=== PATIENT | female | born 1985 | race Caucasian/White ===

== ENCOUNTER 2019-11-21 23:05 | Emergency (ER) | payer OTHER ==
[~2019-11-21] VITALS: Ht 149.9 cm; Wt 45.5 kg
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
[2019-11-22] MEDS ORDERED: ORPH100T PO (00:23)
[2019-11-22] MEDS ORDERED: DICL50TA4 PO (00:23)
[2019-11-22] MEDS ORDERED: ACET-704 PO (00:23)
[2019-11-22 00:28] VITALS: BP 87/50
== END 2019-11-22 00:35 | disposition home or self-care (01) ==
LOC: ER 23:05
DX: S13.9XXA Sprain of joints and ligaments of unspecified parts of neck, initial encounter (principal); S23.3XXA Sprain of ligaments of thoracic spine, initial encounter; V49.49XA Driver injured in collision with other motor vehicles in traffic accident, initial encounter; Y92.488 Other paved roadways as the place of occurrence of the external cause; Y93.89 Activity, other specified; Y99.8 Other external cause status
CPT/HCPCS: 72125; 72128; 99285-25

== ENCOUNTER 2020-06-30 01:19 | Emergency (ER) | payer MEDICAID, OTHER ==
[~2020-06-30] VITALS: Ht 149.9 cm; Wt 41.8 kg
[~2020-06-30 01:19] MED LIST: ACET-704 PO; DICL50TA4 PO; ORPH100T PO
--- NOTE | 2020-06-30 02:14 | ED.ADGEN ---
Past Medical History Past Medical History: Other Additional Past Medical Histor: scoliosis Past Surgical History: Other Additional Past Surgical Histo: multiple back surgeries Smoking Status: Current Every Day Smoker Alcohol Use: None General Adult EDM: Chief Complaint: LOWER EXT PAIN HPI: HPI: Patient is a 35 year old female coming in for worsening right knee pain. States yesterday afternoon from a nap and noticed some pain the swelling to right knee. States pain woke up about an hour prior to arrival it was intolerable. Took one of her oxycodone which she takes scheduled for chronic pain and ibuprofen. Any injury or twisting. 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 Review of Systems: Review of Systems: All other systems within normal limits except for as noted in the HPI Current Medications: Current Medications Medications (Trade) Dose Ordered Sig/Charleen Start Time Stop Time Status Last Admin Dose Admin Lidocaine/ Epinephrine (LIDOCAINE 2%-EPI 1:100,000 multi-dose) 20 ml 1X ONCE 06/30/20 03:00 06/30/20 03:01 DC 06/30/20 04:07 20 ML Lorazepam (Ativan) 1 mg 1X ONCE 06/30/20 03:30 06/30/20 03:31 DC 06/30/20 03:27 1 MG Prednisone (Prednisone) 60 mg 1X ONCE 06/30/20 05:30 06/30/20 05:31 06/30/20 05:17 60 MG Allergies: Allergies: Allergies Coded Allergies Type Severity Reaction Last Updated Verified Penicillins Allergy Intermediate 06/30/20 Yes Physical Exam: PE: Constitutional: Well developed, well nourished, anxious and tearful. [] HENT: Normocephalic, atraumatic, bilateral external ears normal, nose normal. [] Eyes: PERRLA, conjunctiva normal, no discharge. [] Neck: No rigidity, supple, no stridor. [] Cardiovascular: Regular rate and rhythm, brisk cap refill [] Lungs & Thorax: Non labored symmetric respirations, no tachypnea or respiratory distress [] Abdomen: Soft, nondistended. Skin: Warm, dry, no erythema, no rash. [] Back: Unremarkable Extremities: No deformities, range of motion grossly intact, no lower extremity edema. Mild swelling of right knee, tenderness on the medial aspect of knee, no laxity, no erythema or warmth on the knee. Able to ambulate [] Neurologic: Alert and oriented X 3, no focal deficits noted. [] Psychologic: Affect normal, judgement normal, mood normal. [] Current Patient Data: Labs: Laboratory Tests Test 06/30/20 04:00 Body Fluid Source Synovial Body Fluid Color Colorless Body Fluid Clarity Clear Body Fluid Nucleated Cells /cmm (Not Established) Body Fluid Mononuclear WBCs (%) 45 % Body Fluid Polymorphonuclear Cells 55 % Body Fluid Total RBCs Counted /cmm (Not Established) Vital Signs: Vital Signs Date Time Temp Pulse Resp B/P (MAP) Pulse Ox O2 Delivery O2 Flow Rate FiO2 06/30/20 05:08 68 12 89/53 (65) 96 Room Air 06/30/20 01:20 98.0 98.0 EKG: EKG: [] Heart Score: Risk Factors: Risk Factors: DM, Current or recent (<one month) smoker, HTN, HLP, family history of CAD, obesity. Risk Scores: Score 0 - 3: 2.5% MACE over next 6 weeks - Discharge Home Score 4 - 6: 20.3% MACE over next 6 weeks - Admit for Clinical Observation Score 7 - 10: 72.7% MACE over next 6 weeks - Early Invasive Strategies Radiology/Procedures: Radiology/Procedures: Indication: [INDICATION:] Consent: Consent given by patient. Procedure: The knee was well was positioned appropriately and the landmarks were identified. Local anesthesia was 1% lidocaine with epinephrine. The area was then prepped and draped in the usual sterile fashion. A needle was then introduced into the joint space half a cc of clear fluid was aspirated. A sterile dressing was then applied to the site. The patient tolerated the procedure well. Complications: none. [] PROCEDURE: EXT NON VASC RIGHT Right lower extremity soft tissue ultrasound HISTORY: Right leg pain cannot bend the knee, Franco's cyst. FINDINGS: No Franco's cyst evident sonographically at the posterior knee popliteal fossa. At the anterior knee there is a mild joint effusion noted. IMPRESSION: No Franco's cyst evident. Mild joint effusion of the knee. Right knee x-rays 3 views HISTORY: Right knee pain and swelling. FINDINGS: No fracture. No dislocation. No arthrosis. Meniscal chondrocalcinosis. There may be mild anterior knee soft tissue edema and swelling. IMPRESSION: No acute osseous injury. Meniscal chondrocalcinosis. Anterior knee soft tissue swelling. Course & Med Decision Making: Course & Med Decision Making History physical exam and imaging consistent with pseudogout. Not enough fluid was able to be aspirated to do a crystal count. The Gram stain shows no organisms and few white blood cells. [] Dragon Disclaimer: Dragon Disclaimer: This electronic medical record was generated, in whole or in part, using a voice recognition dictation system. Departure Departure Impression: Primary Impression: Synovial swelling of knee joint Disposition: 01 DC HOME SELF CARE/HOMELESS Condition: STABLE Referrals: [facility] Patient Instructions: Knee Arthrocentesis, Pseudogout Scripts Indomethacin (INDOMETHACIN) 50 Mg Capsule 1 CAP PO TID for arthritis for 10 Days, #30 CAP 0 Refills with food Prov: TU KAYE MD 06/30/20 Methylprednisolone (MEDROL) 4 Mg Tab.ds.pk 1 PKG PO UD for steroid, #1 PKG Prov: TU KAYE MD 06/30/20 TU KAYE MD Jun 30, 2020 02:14
[2020-06-30] MEDS ORDERED: LIDOCAINE 2%/EPI 1:100,000 20 ML VIAL. INJ ONE (03:00)
--- NOTE | 2020-06-30 03:29 | RAD ---
Right knee x-rays 3 views HISTORY: Right knee pain and swelling. FINDINGS: No fracture. No dislocation. No arthrosis. Meniscal chondrocalcinosis. There may be mild an terior knee soft tissue edema and swelling. IMPRESSION: No acute osseous injury. Meniscal chondrocalcinosis. Anterior knee soft tissue swelling. Electronically signed by: Hao Dennis MD (06/30/2020 3:22 AM) [facility]
--- NOTE | 2020-06-30 05:00 | RAD ---
Right lower extremity soft tissue ultrasound HISTORY: Right leg pain cannot bend the knee, Franco's cyst. FINDINGS: No Franco's cyst evident sonographically at the posterior knee popliteal fossa. At the anter ior knee there is a mild joint effusion noted. IMPRESSION: No Franco's cyst evident. Mild joint effusion of the knee. Electronically signed by: Hao Dennis MD (06/30/2020 4:57 AM) [facility]
[2020-06-30] MEDS ORDERED: METH4TAB2 PO (05:03)
[2020-06-30] MEDS ORDERED: INDO50CA15 PO (05:03)
[2020-06-30] MEDS: predniSONE 20 MG TABLET PO ONE ×2 (05:11→05:17)
[2020-06-30 05:15] VITALS: BP 91/52
[2020-06-30 05:16] LABS: BF CLARITY CLEAR; BF COLOR COLORLESS; BF MON % 45 %; BF PMN % 55 %; BF SOURCE SYNOVIAL
== END 2020-06-30 05:30 | disposition home or self-care (01) ==
LOC: ER 01:19
DX: M25.561 Pain in right knee (principal); R60.0 Localized edema; F17.200 Nicotine dependence, unspecified, uncomplicated; Z98.890 Other specified postprocedural states; Z88.0 Allergy status to penicillin
CPT/HCPCS: 20610; 73562; 76881; 89050; 99285; J3490; J7512

== ENCOUNTER 2020-08-18 21:46 | Emergency (ER) | payer OTHER, MEDICAID ==
[~2020-08-18] VITALS: Ht 149.9 cm; Wt 43.6 kg
[~2020-08-18 21:46] MED LIST changes: +INDO50CA15 PO; +METH4TAB2 PO
[2020-08-18 21:56] VITALS: BP 92/33
--- NOTE | 2020-08-18 23:51 | RAD ---
INDICATION: Reason: fall head and neck pain / Spl. Instructions: / History: COMPARISON: October 2019 CT cervical TECHNIQUE: Axial CT images obtained through the head and cervical spine without intravenous contrast. Coronal a nd sagittal reformats processed of cervical spine. One or more of the following individualized dose reduction techniques were utilized for this examinat ion: 1. Automated exposure control; 2. Adjustment of the mA and/or kV according to patient size; 3 . Use of iterative reconstruction technique. FINDINGS: Head: No intracranial hemorrhage. No midline shift. Basal cisterns patents. Ventricles and sulci are within normal limits. No acute osseous abnormality. Orbits and paranasal sinuses unremarkable. Cervical: Postoperative changes status post anterior spinal fusion at C6-7 again seen. Degenerative changes of the cervical spine again seen. No definite acute fracture or dislocation. IMPRESSION: * No acute intracranial hemorrhage. * Postoperative changes status post anterior spinal fusion at C6-7 again seen as well as scoliosis r ods at partially visualized thoracic spine. Degenerative changes are also seen throughout the cervica l spine without acute fracture or dislocation. Electronically signed by: Alonso Chiu MD (08/18/2020 11:48 PM) [id number]
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
== END 2020-08-19 00:50 | disposition home or self-care (01) ==
LOC: ER 21:46
DX: S01.01XA Laceration without foreign body of scalp, initial encounter (principal); S13.4XXA Sprain of ligaments of cervical spine, initial encounter; M41.9 Scoliosis, unspecified; F17.200 Nicotine dependence, unspecified, uncomplicated; Z98.890 Other specified postprocedural states; Z88.0 Allergy status to penicillin; W18.39XA Other fall on same level, initial encounter; Y93.89 Activity, other specified; Y92.89 Other specified places as the place of occurrence of the external cause; Y99.8 Other external cause status
CPT/HCPCS: 70450; 72125; 81025; 99285

== ENCOUNTER 2021-04-02 06:08 | Emergency (ER) | payer MEDICAID, OTHER ==
[~2021-04-02] VITALS: Ht 149.9 cm; Wt 47.7 kg
[2021-04-02 06:40] VITALS: BP 91/59
--- NOTE | 2021-04-02 06:42 | PHYS DOC ---
Past Medical History Past Medical History: Other Additional Past Medical Histor: scoliosis Past Surgical History: Other Additional Past Surgical Histo: multiple back surgeries Smoking Status: Current Every Day Smoker Alcohol Use: None General Adult EDM: Chief Complaint: SHOULDER INJURY HPI: HPI: 36-year-old female with history of chronic pain, previous cervical spine injury and current pain management course presents to the emergency department complaining of chronic nonacute pain in both shoulders and both knees which she states is worse in the morning as not associate with any injury or new trauma. She reports no new symptoms today, stated that it was hard to get out of bed this morning so she came to the ER for pain relief. She gets oxycodone from a pain management physician that she saw on Tuesday, states that these are not helping her pain. She is requesting pain relief today. The patient denies nausea, vomiting, fever, chills, chest pain, shortness of breath, abdominal pain, urinary symptoms, cough, recent trauma, or any other complaints. Review of Systems: Review of Systems: Review of systems is otherwise negative except for what was mentioned in the HPI Heart Score: C/O Chest Pain: No Family History: Family History: Noncontributory Allergies: Allergies: Allergies Coded Allergies Type Severity Reaction Last Updated Verified Penicillins Allergy Intermediate 06/30/20 Yes Physical Exam: PE: General: Crying, mild distress. HEENT: Normocephalic, Normal hearing. Visual acuity grossly intact. Neck: Supple, Full range of motion without tenderness. Respiratory: Airway intact, normal phonation, vocalizing. No signs of accessory muscle use or respiratory distress. Cardiovascular: Normal rate, Extremities appear well perfused. 2+ radial pulse. Musculoskeletal: Normal range of motion. No deformity. Ambulatory. No sign of shoulder or knee injury, full rom in passive and active motion, no tenderness. Integumentary: No pallor, No jaundice. Neurologic: Alert, Oriented. Moves all extremities independently. Psychiatric: Cooperative, anxious. Current Patient Data: Vital Signs: Vital Signs Date Time Temp Pulse Resp B/P (MAP) Pulse Ox O2 Delivery O2 Flow Rate FiO2 04/02/21 06:40 98.6 94 13 91/59 (70) 95 Room Air 98.6 Course & Med Decision Making: Course & Med Decision Making Patient was counseled on possible rheumatological disorders versus chronic musculoskeletal issues such as arthritis causing her pain. She was advised to follow-up with her primary care, pain management physicians, and to follow-up with a mobile home servicer eventually to get a further work-up performed. There is no indication of an acute injury objectively today and no history of trauma that would suggest imaging would be beneficial in this case. The patient was given an NSAID for pain and advised to follow-up for further analgesics Departure Departure Impression: Primary Impression: Chronic pain Disposition: HOME / SELF CARE / HOMELESS Condition: STABLE Referrals: EMERY RAMIREZ (PCP) Patient Instructions: Arthritis, Nonspecific, [id number] Additional Instructions: You were seen in the emergency department and your health condition was deemed not to require admission to the hospital. It is important to realize that we can only evaluate you during the time that you are in her department. Occasionally health conditions can worsen upon leaving the emergency department. If this were to happen, please return to and allow us the opportunity to reevaluate you. It is a pleasure to take care of your health needs. Return to the ER if your symptoms worsen, do not improve, or if you develop additional symptoms that are concerning to you As we discussed, follow-up with your primary care physician for possible referral to rheumatology or further workup for msk pain. You will need to follow up with your pain management physician for further narcotics. MARIIA JEAN DO Apr 02, 2021 06:42
[2021-04-02] MEDS ORDERED: KETOROLAC 15 MG/ML VIAL. IM ONE (06:45)
[2021-04-02] MEDS ORDERED: MORPHINE SULFATE 10 MG/ML VIAL. IM ONE (07:00)
== END 2021-04-02 06:54 | disposition home or self-care (01) ==
LOC: ER 06:08
DX: G89.29 Other chronic pain (principal); M25.561 Pain in right knee; M25.562 Pain in left knee; F17.200 Nicotine dependence, unspecified, uncomplicated; Z88.0 Allergy status to penicillin
CPT/HCPCS: 96372; 99283; J1885

== ENCOUNTER 2021-05-03 18:27 | Observation (INO) | payer MEDICAID, OTHER ==
[~2021-05-03] VITALS: Ht 149.9 cm; Wt 30.0 kg
[2021-05-03] MEDS ORDERED: IV NORMAL SALINE 1000ML BAG 1,000 ML IV ONE (20:30)
[2021-05-03 20:38] LABS: BILIRUBIN,URINE NEGATIVE (NEG); CLARITY,URINE CLEAR; COLOR,URINE YELLOW; NITRITE,URINE POSITIVE (NEG); PH,URINE 5.5 (<5.0-8.0); PROTEIN,URINE 30 mg/dL (NEG-TRACE); UROBILINOGEN,URINE 0.2 mg/dL (0.2 mg/dL)
--- NOTE | 2021-05-03 20:39 | PHYS DOC ---
Past Medical History Past Medical History: Other Additional Past Medical Histor: scoliosis Past Surgical History: Other Additional Past Surgical Histo: multiple back surgeries Smoking Status: Current Every Day Smoker Alcohol Use: None General Adult EDM: Chief Complaint: BACK PAIN - NO INJURY HPI: HPI: Patient is a 36 year old female who presents the ED today complaining of 7 out of 10 bilateral flank pain described as sharp and constant, symptoms began 2 days ago. Patient denies any nausea, vomiting. Reports history of kidney stones. Denies any urgency frequency or dysuria. She is also complaining of generalized weakness for 2 days. She states 2 days ago she fell on her knees. Denies hitting her head on the ground but states she has C7, C6 previous fractures and is afraid this fall could have refractured them. Patient is lethargic, she states she is on clonazepam for seizures. Review of Systems: Review of Systems: Constitutional: Reports generalized weakness. Denies fever or chills. [] Eyes: Denies change in visual acuity. [] HENT: Denies nasal congestion or sore throat. [] Respiratory: Denies cough or shortness of breath. [] Cardiovascular: Denies chest pain or edema. [] GI: Denies abdominal pain, nausea, vomiting, bloody stools or diarrhea. [] : Reports bilateral flank pain. Denies dysuria. [] Musculoskeletal: Denies back pain or joint pain. [] Integument: Denies rash. [] Neurologic: Denies headache, focal weakness or sensory changes. [] ] Psychiatric: Denies depression or anxiety. [] Heart Score: C/O Chest Pain: N/A Risk Factors: Risk Factors: DM, Current or recent (<one month) smoker, HTN, HLP, family history of CAD, obesity. Risk Scores: Score 0 - 3: 2.5% MACE over next 6 weeks - Discharge Home Score 4 - 6: 20.3% MACE over next 6 weeks - Admit for Clinical Observation Score 7 - 10: 72.7% MACE over next 6 weeks - Early Invasive Strategies Current Medications: Current Medications Medications (Trade) Dose Ordered Sig/Charleen Start Time Stop Time Status Last Admin Dose Admin Sodium Chloride 1,000 ml @ 1,000 mls/hr 1X ONCE 05/03/21 20:30 05/03/21 21:29 Allergies: Allergies: Allergies Coded Allergies Type Severity Reaction Last Updated Verified Penicillins Allergy Intermediate 06/30/20 Yes gabapentin Allergy Intermediate 04/02/21 Yes morphine Allergy Intermediate 04/02/21 Yes Physical Exam: PE: Constitutional: Thin appearing patient, no acute distress, non-toxic appearance. [] HENT: Normocephalic, atraumatic, bilateral external ears normal, oropharynx moist, no oral exudates, nose normal. [] Eyes: PERRLA, EOMI, conjunctiva normal, no discharge. [] Neck: Normal range of motion, no tenderness, supple, no stridor. [] Cardiovascular:Heart rate regular rhythm, no murmur [] Lungs & Thorax: Bilateral breath sounds clear to auscultation [] Abdomen: Bowel sounds normal, soft, no tenderness, no masses, no pulsatile masses. [] Skin: Warm, dry, no erythema, no rash. [] Back: No tenderness, no CVA tenderness. [] Extremities: No tenderness, no cyanosis, no clubbing, ROM intact, no edema. [] Neurologic: Alert and oriented X 3, normal motor function, normal sensory function, no focal deficits noted. Cranial nerves II through XII intact Psychologic: Flat affect, lethargic Current Patient Data: Vital Signs: Vital Signs Date Time Temp Pulse Resp B/P (MAP) Pulse Ox O2 Delivery O2 Flow Rate FiO2 05/03/21 19:30 97.4 91 17 102/54 (70) 96 Room Air 97.4 EKG: EK interpreted by Dr. Levine sinus rhythm heart rate 83 no STEMI [] Radiology/Procedures: Radiology/Procedures: []PROCEDURE: CT HEAD AND CERVICAL SPINE WO Examination: CT head and cervical spine without contrast CT HEAD INDICATION: Reason: weakness fall / Spl. Instructions: / History: COMPARISON: None Available. Exposure: One or more of the following individualized dose reduction techniques were utilized for this examination: 1. Automated exposure control 2. Adjustment of the mA and/or kV according to patient size 3. Use of iterative reconstruction technique TECHNIQUE: 5 mm contiguous axial images were obtained from the skull base to the vertex in both bone and soft tissue algorithm. FINDINGS: No abnormal attenuation within the brain parenchyma. No evidence of acute intracranial hemorrhage. No extra-axial fluid collections. No mass effect or midline shift. Ventricular size is appropriate. Basal cis terns are patent. No fractures identified.Hurst-white differentiation is preserved.Globes and orbits are within normal limits. Paranasal sinuses and mastoid air cells are clear. CT CERVICAL SPINE INDICATION: Reason: weakness fall / Spl. Instructions: / History: COMPARISON: None Available. Technique: 2.5 mm contiguous axial images were obtained from the skull base through the cervicothoracic junction in both bone and soft tissue algorithm. Additional sagittal and coronal reconstructions were also performed. FINDINGS: Vertebral body height are maintained. Cervical lordosis is preserved. The lateral masses of C1 are aligned upon C2. No fractures identified. The bony canal is patent throughout. Anterior cervical fusion hardware identified at C6-C7 vertebral level with intervertebral disc spacer. There is reversal of normal cervical lordosis. Moderate intervertebral calculus identified in the cervical spine C4-C5, C5-C6 vertebral level. The paraspinous soft tissues are unremarkable. Visualized intracranial contents are unremarkable. Lung apices are clear. IMPRESSION: 1. No acute intracranial findings. 2. No acute fracture cervical spine. 3. Anterior cervical fusion hardware identified at C6-C7 vertebral level with intervertebral disc spacer. Electronically signed by: Pete Wiseman MD (05/03/2021 9:47 PM) [id number] DICTATED and SIGNED BY: PETE WISEMAN MD DATE: 05/03/[id number] 0 PROCEDURE: PORTABLE CHEST 1V EXAM: CHEST 1 VIEW History: Weakness COMPARISON: None available. TECHNIQUE: Single portable radiograph of the chest FINDINGS: The cardiac silhouette is unremarkable. The lungs are clear bilaterally. The costophrenic sulci are clear and well demarcated. Hardware iden tified in the thoracic spine. IMPRESSION: No radiographic evidence of an acute cardiopulmonary process. Electronically signed by: Pete Wiseman MD (05/03/2021 9:31 PM) [id number] DICTATED and SIGNED BY: PETE WISEMAN MD DATE: 05/03/[id number] 0 PROCEDURE: CT ABDOMEN PELVIS WO CONTRAST Site ID: [id number] EXAMINATION: CT ABDOMEN+PELVIS WO. Technique: Axial images with coronal and sagittal reconstructions are performed of abdomen and pelvis without contrast. One or more of the following radiation dose reduction techniques was used: automated exposure control, adjustment of mA and/or KV according to patient size, and/or utilization of iterative reconstruction technique. HISTORY: 36 years Female Reason: weakness fall : . COMPARISON: None. FINDINGS: The lung bases appear clear. There are significant beam hardening artifacts secondary to spine fusion hardware extending to the mid lumbar spine from the thoracic spine. In addition lack of IV contrast also is a limitation to evaluation. There is severe scoliosis convex to the right side around the thoracolumbar junction. The liver, spleen, and the gallbladder appear unremarkable. The pancreas and adrenal glands area demonstrate no definite abnormality. Significant artifacts also seen over the kidneys with no definite abnormality or hydronephrosis. The uterus and adnexa appear unremarkable. No focal abnormality is seen in the urinary bladder. There is moderate amounts of fecal material seen in the colon which may relate to constipation. The appendix is not identified. No intra-abdominal hematoma or fluid collection is seen. Severe scoliosis in the lumbar spine with the fusion hardware in place. IMPRESSION: Significant artifacts and limitation to the study as described. No definite acute abnormality. Electronically signed by: Melissa Cisneros MD (05/03/2021 9:45 PM) [id number] DICTATED and SIGNED BY: MELISSA CISNEROS MD DATE: 05/03/21 [id number] 0 Course & Med Decision Making: Course & Med Decision Making Pertinent Labs and Imaging studies reviewed. (See chart for details) This is a 36-year-old female patient presenting to the ED today complaining of generalized weakness and flank pain, symptoms for 2 days. Patient is very lethargic. She states she is on clonazepam for seizures thus making her sleepy. She also states she was weak 2 days ago and fell on her knees. CT of the head and cervical spine are negative for any acute findings, CT of abdomen and pelvis negative for any acute findings. UA positive for nitrates, CBC with no acute findings, CMP with AST of 172, ALT of 88, ALK of 60. EKG is negative, high-sensitivity troponin 160 patient denies any chest pain. Has been lethargic primarily in the ED. Spoke with Dr. Sales he requested we admit patient. Patient was admitted under Dr. Wilder. Aspirin given in the ED. 2349 I evaluated patient again, she states she has had intermittent episodes of chest pain for the last 6 months. She states she thought it was her acid reflux and was treating it as such. She states right now in the ED she does not have any chest pain. She states she has family history of cardiac events including an uncle who had a triple bypass in his late 30s. Amy Disclaimer: Amy Disclaimer: This electronic medical record was generated, in whole or in part, using a voice recognition dictation system. Departure Departure Impression: Primary Impression: Generalized weakness Additional Impressions: Acute pyelonephritis Elevated troponin Disposition: ADMITTED INPATIENT Condition: STABLE Referrals: EMERY RAMIREZ (PCP) WASHINGTON GODOY [employer] DOOR TENDER May 03, 2021 20:39
[2021-05-03 20:45] LABS: BARBITURATES NEG (NEG); BENZODIAZEPINES POS (NEG); CANNABINOIDS NEG (NEG); COCAINE NEG (NEG); METHADONE NEG (NEG); OPIATES POS (NEG); PHENCYCLIDINE NEG (NEG)
[2021-05-03 20:48] LABS: AMPHETAMINE/METHAMPHETAMINE NEG (NEG)
[2021-05-03 20:51] LABS: BACTERIA,URINE MANY /HPF (0-FEW); RBC,URINE 0 /HPF (0-2)
[2021-05-03 20:54] LABS: U PREG PATIENT NEGATIVE (NEG)
[2021-05-03] MEDS ORDERED: CIPROFLOXACIN 400MG PREMIX 200 ML IV ONE (21:30)
--- NOTE | 2021-05-03 21:33 | RAD ---
EXAM: CHEST 1 VIEW History: Weakness COMPARISON: None available. TECHNIQUE: Single portable radiograph of the chest FINDINGS: The cardiac silhouette is unremarkable. The lungs are clear bilaterally. The costophrenic sulci are clear and well demarcated. Hardware identified in the thoracic spine. IMPRESSION: No radiographic evidence of an acute cardiopulmonary process. Electronically signed by: Pete Wiseman MD (05/03/2021 9:31 PM) [id number]
[2021-05-03 21:43] LABS: BASO % 0 % (0-3); EOS # 0.1 x10^3/uL (0.0-0.7); EOS % 2 % (0-3); HEMATOCRIT 36.5 % (36.0-47.0); HEMOGLOBIN 12.7 g/dL (12.0-15.5); LYMPH # 1.4 x10^3/uL (1.0-4.8); LYMPH % 31 % (24-48); MEAN CORPUSCULAR HEMOGLOBIN 30 pg (25-35); MEAN CORPUSCULAR HGB CONC 35 g/dL (31-37); MEAN CORPUSCULAR VOLUME 86 fL (79-100); MONO # 0.5 x10^3/uL (0.0-1.1); MONO % 11 % (0-9); NEUT # 2.5 x10^3/uL (1.8-7.7); NEUT % 57 % (31-73); PLATELET COUNT 171 x10^3/uL (140-400); RED BLOOD COUNT 4.27 x10^6/uL (3.50-5.40); RED CELL DISTRIBUTION WIDTH 13.3 % (11.5-14.5); WHITE BLOOD COUNT 4.5 x10^3/uL (4.0-11.0)
--- NOTE | 2021-05-03 21:47 | RAD ---
Site ID: [id number] EXAMINATION: CT ABDOMEN+PELVIS WO. Technique: Axial images with coronal and sagittal reconstructions are performed of abdomen and pelvis without contrast. One or more of the following radiation dose reduction techniques was used: automated exposure control , adjustment of mA and/or KV according to patient size, and/or utilization of iterative reconstructio n technique. HISTORY: 36 years Female Reason: weakness fall : . COMPARISON: None. FINDINGS: The lung bases appear clear. There are significant beam hardening artifacts secondary to spine fusion hardware extending to the mi d lumbar spine from the thoracic spine. In addition lack of IV contrast also is a limitation to evalu ation. There is severe scoliosis convex to the right side around the thoracolumbar junction. The liver, spleen, and the gallbladder appear unremarkable. The pancreas and adrenal glands area demo nstrate no definite abnormality. Significant artifacts also seen over the kidneys with no definite ab normality or hydronephrosis. The uterus and adnexa appear unremarkable. No focal abnormality is seen in the urinary bladder. There is moderate amounts of fecal material seen in the colon which may relate to constipation. The a ppendix is not identified. No intra-abdominal hematoma or fluid collection is seen. Severe scoliosis in the lumbar spine with the fusion hardware in place. IMPRESSION: Significant artifacts and limitation to the study as described. No definite acute abnormality. Electronically signed by: Henry Cisneros MD (05/03/2021 9:45 PM) [id number]
--- NOTE | 2021-05-03 21:49 | RAD ---
Examination: CT head and cervical spine without contrast CT HEAD INDICATION: Reason: weakness fall / Spl. Instructions: / History: COMPARISON: None Available. Exposure: One or more of the following individualized dose reduction techniques were utilized for thi s examination: 1. Automated exposure control 2. Adjustment of the mA and/or kV according to patient size 3. Use of iterative reconstruction technique TECHNIQUE: 5 mm contiguous axial images were obtained from the skull base to the vertex in both bone and soft tissue algorithm. FINDINGS: No abnormal attenuation within the brain parenchyma. No evidence of acute intracranial hemorrhage. No extra-axial fluid collections. No mass effect or midline shift. Ventricular size is appropriate. Basal cisterns are patent. No fractures identified.Hurst-white differentiation is preserved.Globes and orbits are within normal l imits. Paranasal sinuses and mastoid air cells are clear. CT CERVICAL SPINE INDICATION: Reason: weakness fall / Spl. Instructions: / History: COMPARISON: None Available. Technique: 2.5 mm contiguous axial images were obtained from the skull base through the cervicothorac ic junction in both bone and soft tissue algorithm. Additional sagittal and coronal reconstructions were also performed. FINDINGS: Vertebral body height are maintained. Cervical lordosis is preserved. The lateral masses of C1 are aligned upon C2. No fractures identified. The bony canal is patent throughout. Anterior cervical fusion hardware identified at C6-C7 vertebral level with intervertebral disc spacer . There is reversal of normal cervical lordosis. Moderate intervertebral calculus identified in the c ervical spine C4-C5, C5-C6 vertebral level. The paraspinous soft tissues are unremarkable. Visualized intracranial contents are unremarkable. L alina apices are clear. IMPRESSION: 1. No acute intracranial findings. 2. No acute fracture cervical spine. 3. Anterior cervical fusion hardware identified at C6-C7 vertebral level with intervertebral disc sp acer. Electronically signed by: Pete Wiseman MD (05/03/2021 9:47 PM) [id number]
[2021-05-03 21:51] LABS: CALCIUM 8.7 mg/dL (8.5-10.1); CREATININE 0.9 mg/dL (0.6-1.0); GFR 70.5; POTASSIUM 3.7 mmol/L (3.5-5.1)
[2021-05-03 21:56] LABS: ALBUMIN 3.6 g/dL (3.4-5.0); MAGNESIUM 2.3 mg/dL (1.8-2.4); TOTAL BILIRUBIN 0.5 mg/dL (0.2-1.0); TOTAL PROTEIN 7.1 g/dL (6.4-8.2)
[2021-05-04] MEDS ORDERED: ONDANSETRON PF 4 MG/2 ML VIAL. IVP PRN ×2 (00:30→12:15)
[2021-05-04] MEDS ORDERED: ASPIRIN 325 MG TABLET PO ONE (01:00)
--- NOTE | 2021-05-04 01:05 | EKG ---
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
[2021-05-04] MEDS: fentaNYL PF VIAL 100 MCG/2 ML VIAL IVP PRN ×2 (04:39→08:59)
--- NOTE | 2021-05-04 09:54 | PDOC2 ---
CARDIAC CONSULT DATE OF CONSULT Date of Consult DATE: 05/04/21 TIME: 09:49 REASON FOR CONSULT Reason for Consult: Elevated troponin REFERRING PHYSICIAN Referring Physician: Neetu Amezcua APRN SOURCE Source: Chart review, Patient HISTORY OF PRESENT ILLNESS HISTORY OF PRESENT ILLNESS This is a 36 yo female who presented secondary to flank pain. Troponin noted to be mildly elevated, which prompted this consult. UA notable to UTI. She denies any chest pain, palpitations, dizziness, diaphoresis, or nausea/vomiting. Also reporting seizures, and weakness/ pain in her bilateral knees for the last 6 months. Is tearful and wanting to go home. No prior h/o CAD. Blood pressure is low end, which patient reports as her basel ine. 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 ) Lives: with Family CURRENT MEDICATIONS CURRENT MEDICATIONS Current Medications Medications (Trade) Dose Ordered Sig/Charleen Route PRN Reason Start Time Stop Time Status Last Admin Dose Admin Sodium Chloride 1,000 ml @ 1,000 mls/hr 1X ONCE IV 05/03/21 20:30 05/03/21 21:29 DC 05/03/21 22:13 Ciprofloxacin/ Dextrose 200 ml @ 200 mls/hr 1X ONCE IV 05/03/21 21:30 05/03/21 22:29 DC 05/03/21 22:13 Fentanyl Citrate (Fentanyl 2ml Vial) 50 mcg PRN Q1HR PRN IVP SEVERE PAIN 7-10 05/04/21 00:30 05/05/21 00:29 05/04/21 08:59 Aspirin (Deana Aspirin) 325 mg 1X ONCE PO 05/04/21 01:00 05/04/21 01:01 DC 05/04/21 01:18 ALLERGIES ALLERGIES: Coded Allergies: Penicillins (Verified Allergy, Intermediate, 06/30/20) gabapentin (Verified Allergy, Intermediate, 04/02/21) morphine (Verified Allergy, Intermediate, 04/02/21) ROS Review of System 14 point ROS conducted with pertinent positives noted above in HPI PHYSICAL EXAM General: Alert, Oriented X3, Cooperative, No acute distress HEENT: Atraumatic Lungs: Clear to auscultation Heart: Regular rate Abdomen: Soft, No tenderness Extremities: No edema, Normal pulses Skin: No significant lesion Neuro: Normal speech, Sensation intact Psych/Mental Status: Other (anxious, tearful ) MUSCULOSKELETAL: Osteoarthritic changes both hands VITALS/I&O VITALS/I&O: Vital Signs Date Time Temp Pulse Resp B/P (MAP) Pulse Ox O2 Delivery O2 Flow Rate FiO2 05/04/21 08:59 16 96 Room Air 05/04/21 04:37 72 86/48 (61) 05/03/21 19:30 97.4 97.4 LABS Lab: Laboratory Tests Test 05/03/21 19:58 05/03/21 21:00 05/03/21 23:55 05/04/21 05:05 Urine Collection Type U cath Urine Color Yellow Urine Clarity Clear Urine pH 5.5 (<5.0-8.0) Urine Specific [place] 1.025 (1.000-1.030) Urine Protein 30 mg/dL (NEG-TRACE) Urine Glucose (UA) Negative mg/dL (NEG) Urine Ketones (Stick) 40 mg/dL (NEG) Urine Blood Moderate (NEG) Urine Nitrite Positive (NEG) Urine Bilirubin Negative (NEG) Urine Urobilinogen Dipstick 0.2 mg/dL (0.2 mg/dL) Urine Leukocyte Esterase Negative (NEG) Urine RBC 0 /HPF (0-2) Urine WBC 1-4 /HPF (0-4) Urine Squamous Epithelial Cells Mod /LPF Urine Bacteria Many /HPF (0-FEW) Urine Mucus Mod /LPF Urine Test Negative (NEG) Urine Opiates Screen Pos (NEG) Urine Methadone Screen Neg (NEG) Urine Barbiturates Neg (NEG) Urine Phencyclidine Screen Neg (NEG) Urine Amphetamine/Methamphetamine Neg (NEG) Urine Benzodiazepines Screen Pos (NEG) Urine Cocaine Screen Neg (NEG) Urine Cannabinoids Screen Neg (NEG) Urine Ethyl Alcohol Neg (NEG) White Blood Count 4.5 x10^3/uL (4.0-11.0) Red Blood Count 4.27 x10^6/uL (3.50-5.40) Hemoglobin 12.7 g/dL (12.0-15.5) Hematocrit 36.5 % (36.0-47.0) Mean Corpuscular Volume 86 fL (79-100) Mean Corpuscular Hemoglobin 30 pg (25-35) Mean Corpuscular Hemoglobin Concent 35 g/dL (31-37) Red Cell Distribution Width 13.3 % (11.5-14.5) Platelet Count 171 x10^3/uL (140-400) Neutrophils (%) (Auto) 57 % (31-73) Lymphocytes (%) (Auto) 31 % (24-48) Monocytes (%) (Auto) 11 % (0-9) H Eosinophils (%) (Auto) 2 % (0-3) Basophils (%) (Auto) 0 % (0-3) Neutrophils # (Auto) 2.5 x10^3/uL (1.8-7.7) Lymphocytes # (Auto) 1.4 x10^3/uL (1.0-4.8) Monocytes # (Auto) 0.5 x10^3/uL (0.0-1.1) Eosinophils # (Auto) 0.1 x10^3/uL (0.0-0.7) Basophils # (Auto) 0.0 x10^3/uL (0.0-0.2) Sodium Level 139 mmol/L (136-145) Potassium Level 3.7 mmol/L (3.5-5.1) Chloride Level 98 mmol/L (98-107) Carbon Dioxide Level 32 mmol/L (21-32) Anion Gap 9 (6-14) Blood Urea Nitrogen 28 mg/dL (7-20) H Creatinine 0.9 mg/dL (0.6-1.0) Estimated GFR (Cockcroft-Gault) 70.5 BUN/Creatinine Ratio 31 (6-20) H Glucose Level 82 mg/dL (70-99) Calcium Level 8.7 mg/dL (8.5-10.1) Magnesium Level 2.3 mg/dL (1.8-2.4) Total Bilirubin 0.5 mg/dL (0.2-1.0) Aspartate Amino Transferase (AST) 172 U/L (15-37) H Alanine Aminotransferase (ALT) 85 U/L (14-59) H Alkaline Phosphatase 60 U/L (46-116) Troponin I High Sensitivity 160 ng/L (4-50) H 145 ng/L (4-50) H 102 ng/L (4-50) H Total Protein 7.1 g/dL (6.4-8.2) Albumin 3.6 g/dL (3.4-5.0) Albumin/Globulin Ratio 1.0 (1.0-1.7) Ethyl Alcohol Level < 10 mg/dL (0-10) Test 05/04/21 08:55 SARS-CoV-2 Antigen (Rapid) Negative (NEGATIVE) Laboratory Tests 05/03/21 21:00 Laboratory Tests 05/03/21 21:00 ASSESSMENT/PLAN ASSESSMENT/PLAN 1. Flank pain 2. UTI 3. Mild troponin elevation; high sensitivity peak 160. most probably type II, demand ischemia. CP free 4. Elevated LFTs 5. Chronic pain 6. H/o seizure 7. Hypotension Recommendations Echo to assess LV systolic function Lipids Treatment of UTI as per LISA FORD APRN May 04, 2021 09:54
[2021-05-04 11:15] VITALS: BP 86/39
[2021-05-04] MEDS ORDERED: CLON1TAB PO ×2 (11:43→13:20)
[2021-05-04] MEDS ORDERED: CITA20TA6 PO (11:43)
[2021-05-04] MEDS ORDERED: OXYC20TA PO (11:44)
[2021-05-04] MEDS ORDERED: MAG HYDROX/ALUMINUM HYD/SIMETH 30 ML ORAL.SUSP PO PRN (12:15)
[2021-05-04] MEDS ORDERED: oxyCODONE/APAP 5/325 1 TAB TABLET PO PRN ×2 (12:15)
[2021-05-04] MEDS ORDERED: ELECTROLYTE (NON-ICU) PROTOCOL. MC PRN (12:15)
[2021-05-04] MEDS ORDERED: CALCIUM CARBONATE 500 MG TAB.CHEW PO PRN (12:15)
[2021-05-04] MEDS ORDERED: oxyCODONE IR 5 MG TABLET PO PRN (12:15)
[2021-05-04] MEDS ORDERED: ACETAMINOPHEN 325 MG TABLET. PO PRN (12:15)
[2021-05-04] MEDS ORDERED: ZOLPIDEM 5 MG TABLET. PO PRN (12:15)
[2021-05-04] MEDS ORDERED: CITALOPRAM 20 MG TABLET. PO SCH (13:00)
[2021-05-04] MEDS ORDERED: clonazePAM 0.5 MG TABLET PO SCH (13:00)
[2021-05-04] MEDS ORDERED: cefTRIAXone IV Push 1 GM VIAL. IVP SCH (13:00)
[2021-05-04] MEDS ORDERED: FLU VACC QUAD 21-22 (6MOS+) PF 0.5 ML SYRINGE. VAX IM ONE (13:00)
--- NOTE | 2021-05-04 13:13 | PDOC1 ---
History and Physical Date of Service: DOS: DATE: 05/04/21 TIME: 13:08 Chief Complaint: Chief Complain: flank pain History of Present Illness: HPI: Patient is a 36 year old female who presents the ED today complaining of 7 out of 10 bilateral flank pain described as sharp and constant, symptoms began 2 days ago. Patient denies any nausea, vomiting. Reports history of kidney stones. Denies any urgency frequency or dysuria. She is also complaining of generalized weakness for 2 days. She states 2 days ago she fell on her knees. Denies hitting her head on the ground but states she has C7, C6 previous fractures and is afraid this fall could have refractured them. Patient is lethargic, she states she is on clonazepam for seizure Past Medical/Surgical History: PMH/PSH: kidney stones Allergies: Allergies: Coded Allergies: Penicillins (Verified Allergy, Intermediate, 06/30/20) gabapentin (Verified Allergy, Intermediate, 04/02/21) morphine (Verified Allergy, Intermediate, 04/02/21) Family History: Family History: reviewed with patient, denies Social History: Social History: denies alcohol tobacco drug use; on chronic pain meds very fixated on pain meds being correct Current Medications: Current Medications Current Medications Sodium Chloride 1,000 ml @ 1,000 mls/hr 1X ONCE IV Last administered on 05/03/21at 22:13; Start 05/03/21 at 20:30; Stop 05/03/21 at 21:29; Status DC Ciprofloxacin/ Dextrose 200 ml @ 200 mls/hr 1X ONCE IV Last administered on 1 07/04/20at 22:13; Start 05/03/21 at 21:30; Stop 05/03/21 at 22:29; Status DC Ondansetron HCl (Zofran) 4 mg PRN Q8HRS PRN IVP NAUSEA/VOMITING 1st CHOICE; Start 05/04/21 at 00:30; Stop 05/05/21 at 00:29 Fentanyl Citrate (Fentanyl 2ml Vial) 50 mcg PRN Q1HR PRN IVP SEVERE PAIN 7-10 Last administered on 05/04/21at 08:59; Start 05/04/21 at 00:30; Stop 05/05/21 at 00:29 Aspirin (Deana Aspirin) 325 mg 1X ONCE PO Last administered on 05/04/21at 01:18; Start 05/04/21 at 01:00; Stop 05/04/21 at 01:01; Status DC Influenza Virus Vaccine Quadrival (Flulaval Quad [id number] Syringe) 0.5 ml ONCE ONCE VAX IM ; Start 05/04/21 at 13:00; Stop 05/04/21 at 13:01; Status DC Citalopram Hydrobromide (CeleXA) 20 mg DAILY PO ; Start 05/04/21 at 13:00 Clonazepam (KlonoPIN) 1 mg BID PO ; Start 05/04/21 at 13:00 Ceftriaxone Sodium (Rocephin) 1 gm Q24H IVP ; Start 05/04/21 at 13:00 Ondansetron HCl (Zofran) 4 mg PRN Q6HRS PRN IVP NAUSEA/VOMITING; Start 05/04/21 at 12:15 Al Hydroxide/Mg Hydroxide (Mylanta Plus Xs) 30 ml PRN Q3HRS PRN PO HEARTBURN / GAS; Start 05/04/21 at 12:15 Calcium Carbonate/ Glycine (Tums) 500 mg PRN Q3HRS PRN PO UPSET STOMACH; Start 05/04/21 at 12:15 Zolpidem Tartrate (Ambien) 5 mg PRN QHS PRN PO INSOMNIA, MAY REPEAT IN 1HR; Start 05/04/21 at 12:15 Info (Non-Icu Electrolyte Protocol) 1 ea PRN DAILY PRN MC SEE COMMENTS; Start 05/04/21 at 12:15 Oxycodone/ Acetaminophen (Percocet 5/325) 1 tab PRN Q4HRS PRN PO MILD PAIN, 1ST CHOICE; Start 05/04/21 at 12:15 Oxycodone/ Acetaminophen (Percocet 5/325) 2 tab PRN Q4HRS PRN PO MODERATE PAIN; Start 05/04/21 at 12:15 Acetaminophen (Tylenol) 650 mg PRN Q6HRS PRN PO Headaches, Temp > 101.5F; Start 05/04/21 at 12:15 Senna/Docusate Sodium (Senna Plus) 1 tab BID PO ; Start 05/04/21 at 21:00 Heparin Sodium (Porcine) (Heparin Sodium) 5,000 unit Q8HRS SQ ; Start 05/04/21 at 14:00 Oxycodone HCl (Roxicodone) 20 mg 5XDAY PRN PO SEVERE PAIN; Start 05/04/21 at 12 :15 Active Scripts Active Reported Oxycodone Hcl 20 Mg Tablet 20 Mg PO 5XDAY PRN Citalopram Hbr (Citalopram Hydrobromide) 20 Mg Tablet 20 Mg PO DAILY Klonopin (Clonazepam) 1 Mg Tablet 1 Tab PO BID ROS: Review of Systems Review of System REVIEW OF SYSTEMS: GENERAL: Denies weakness SKIN: No bruising, hair changes or rashes. EYES: No blurred, double or loss of vision. NOSE AND THROAT: No history of nosebleeds, hoarseness or sore throat. HEART: No history of palpitations, chest pain or shortness of breath on exertion. LUNGS: Denies cough, hemoptysis, wheezing or shortness of breath. GASTROINTESTINAL: Denies changes in appetite, nausea, vomiting, diarrhea or constipation. GENITOURINARY: No history of frequency, urgency, hesitancy or nocturia. NEUROLOGIC: Denies history of numbness, tingling, or tremor. PSYCHIATRIC: No history of panic, anxiety or depression. ENDOCRINE: No history of heat or cold intolerance, polyuria or polydipsia. EXTREMITIES: Denies joint pain, pain on walking or stiffness. Physical Exam: Vital Signs: Vital Signs Date Time Temp Pulse Resp B/P (MAP) Pulse Ox O2 Delivery O2 Flow Rate FiO2 05/04/21 11:15 95.9 66 14 86/39 (55) 97 Room Air 95.9 Physcial Exam: GEN: She has notable distress HEENT: Normal cephalic, atraumatic, external auditory canals are patent EYES: Extraocular muscles are intact, pupil are equally round and reactive to light and accommodation MUSCULOSKELETAL: Malnourished ENDOCRINE: No thyromegaly was palpated LYMPHATICS: No cervical chain or axillary nodes were noted HEMATOPOIETIC: No bruising NECK: Supple, no JVD, no thyromegaly was noted LUNGS: Clear to auscultation in all lung white without rhonchi or wheezing HEART: RRR, S!, S2 present. Peripheral pulses intact, no obvious murmurs n oted ABDOMEN: Soft, nontender. Positive bowel sounds, no organomegaly, normal bowel sounds EXTREMITIES: Without clubbing, cyanosis, or edema. Pedal pulses intact. Negative Homans sign NEUROLOGIC: Normal speech and tone. A&O x 3, moves all extremities, no obvious focal deficits PSYCHIATRIC: Normal affect, normal mood. Stable SKIN: No ulcerations or rashes, good skin turgor, no jaundice VASCULAR: Good capillary refill, neurovascular bundle appears to be intact Labs: Labs: Laboratory Tests Test 05/03/21 19:58 05/03/21 21:00 05/03/21 23:55 05/04/21 05:05 Urine Collection Type U cath Urine Color Yellow Urine Clarity Clear Urine pH 5.5 (<5.0-8.0) Urine Specific [place] 1.025 (1.000-1.030) Urine Protein 30 mg/dL (NEG-TRACE) Urine Glucose (UA) Negative mg/dL (NEG) Urine Ketones (Stick) 40 mg/dL (NEG) Urine Blood Moderate (NEG) Urine Nitrite Positive (NEG) Urine Bilirubin Negative (NEG) Urine Urobilinogen Dipstick 0.2 mg/dL (0.2 mg/dL) Urine Leukocyte Esterase Negative (NEG) Urine RBC 0 /HPF (0-2) Urine WBC 1-4 /HPF (0-4) Urine Squamous Epithelial Cells Mod /LPF Urine Bacteria Many /HPF (0-FEW) Urine Mucus Mod /LPF Urine Test Negative (NEG) Urine Opiates Screen Pos (NEG) Urine Methadone Screen Neg (NEG) Urine Barbiturates Neg (NEG) Urine Phencyclidine Screen Neg (NEG) Urine Amphetamine/Methamphetamine Neg (NEG) Urine Benzodiazepines Screen Pos (NEG) Urine Cocaine Screen Neg (NEG) Urine Cannabinoids Screen Neg (NEG) Urine Ethyl Alcohol Neg (NEG) White Blood Count 4.5 x10^3/uL (4.0-11.0) Red Blood Count 4.27 x10^6/uL (3.50-5.40) Hemoglobin 12.7 g/dL (12.0-15.5) Hematocrit 36.5 % (36.0-47.0) Mean Corpuscular Volume 86 fL (79-100) Mean Corpuscular Hemoglobin 30 pg (25-35) Mean Corpuscular Hemoglobin Concent 35 g/dL (31-37) Red Cell Distribution Width 13.3 % (11.5-14.5) Platelet Count 171 x10^3/uL (140-400) Neutrophils (%) (Auto) 57 % (31-73) Lymphocytes (%) (Auto) 31 % (24-48) Monocytes (%) (Auto) 11 % (0-9) Eosinophils (%) (Auto) 2 % (0-3) Basophils (%) (Auto) 0 % (0-3) Neutrophils # (Auto) 2.5 x10^3/uL (1.8-7.7) Lymphocytes # (Auto) 1.4 x10^3/uL (1.0-4.8) Monocytes # (Auto) 0.5 x10^3/uL (0.0-1.1) Eosinophils # (Auto) 0.1 x10^3/uL (0.0-0.7) Basophils # (Auto) 0.0 x10^3/uL (0.0-0.2) Sodium Level 139 mmol/L (136-145) Potassium Level 3.7 mmol/L (3.5-5.1) Chloride Level 98 mmol/L (98-107) Carbon Dioxide Level 32 mmol/L (21-32) Anion Gap 9 (6-14) Blood Urea Nitrogen 28 mg/dL (7-20) Creatinine 0.9 mg/dL (0.6-1.0) Estimated GFR (Cockcroft-Gault) 70.5 BUN/Creatinine Ratio 31 (6-20) Glucose Level 82 mg/dL (70-99) Calcium Level 8.7 mg/dL (8.5-10.1) Magnesium Level 2.3 mg/dL (1.8-2.4) Total Bilirubin 0.5 mg/dL (0.2-1.0) Aspartate Amino Transf (AST/SGOT) 172 U/L (15-37) Alanine Aminotransferase (ALT/SGPT) 85 U/L (14-59) Alkaline Phosphatase 60 U/L (46-116) Troponin I High Sensitivity 160 ng/L (4-50) 145 ng/L (4-50) 102 ng/L (4-50) Total Protein 7.1 g/dL (6.4-8.2) Albumin 3.6 g/dL (3.4-5.0) Albumin/Globulin Ratio 1.0 (1.0-1.7) Ethyl Alcohol Level < 10 mg/dL (0-10) Triglycerides Level 84 mg/dL (0-150) Cholesterol Level 150 mg/dL (0-200) LDL Cholesterol, Calculated 83 mg/dL (0-100) VLDL Cholesterol, Calculated 17 mg/dL (0-40) Non-HDL Cholesterol Calculated 100 mg/dL (0-129) HDL Cholesterol 50 mg/dL (40-60) Cholesterol/HDL Ratio 3.0 Test 05/04/21 08:55 SARS-CoV-2 Antigen (Rapid) Negative (NEGATIVE) Laboratory Tests Test 05/03/21 19:58 05/03/21 21:00 05/03/21 23:55 05/04/21 05:05 Urine Collection Type U cath Urine Color Yellow Urine Clarity Clear Urine pH 5.5 (<5.0-8.0) Urine Specific [place] 1.025 (1.000-1.030) Urine Protein 30 mg/dL (NEG-TRACE) Urine Glucose (UA) Negative mg/dL (NEG) Urine Ketones (Stick) 40 mg/dL (NEG) Urine Blood Moderate (NEG) Urine Nitrite Positive (NEG) Urine Bilirubin Negative (NEG) Urine Urobilinogen Dipstick 0.2 mg/dL (0.2 mg/dL) Urine Leukocyte Esterase Negative (NEG) Urine RBC 0 /HPF (0-2) Urine WBC 1-4 /HPF (0-4) Urine Squamous Epithelial Cells Mod /LPF Urine Bacteria Many /HPF (0-FEW) Urine Mucus Mod /LPF Urine Test Negative (NEG) Urine Opiates Screen Pos (NEG) Urine Methadone Screen Neg (NEG) Urine Barbiturates Neg (NEG) Urine Phencyclidine Screen Neg (NEG) Urine Amphetamine/Methamphetamine Neg (NEG) Urine Benzodiazepines Screen Pos (NEG) Urine Cocaine Screen Neg (NEG) Urine Cannabinoids Screen Neg (NEG) Urine Ethyl Alcohol Neg (NEG) White Blood Count 4.5 x10^3/uL (4.0-11.0) Red Blood Count 4.27 x10^6/uL (3.50-5.40) Hemoglobin 12.7 g/dL (12.0-15.5) Hematocrit 36.5 % (36.0-47.0) Mean Corpuscular Volume 86 fL (79-100) Mean Corpuscular Hemoglobin 30 pg (25-35) Mean Corpuscular Hemoglobin Concent 35 g/dL (31-37) Red Cell Distribution Width 13.3 % (11.5-14.5) Platelet Count 171 x10^3/uL (140-400) Neutrophils (%) (Auto) 57 % (31-73) Lymphocytes (%) (Auto) 31 % (24-48) Monocytes (%) (Auto) 11 % (0-9) Eosinophils (%) (Auto) 2 % (0-3) Basophils (%) (Auto) 0 % (0-3) Neutrophils # (Auto) 2.5 x10^3/uL (1.8-7.7) Lymphocytes # (Auto) 1.4 x10^3/uL (1.0-4.8) Monocytes # (Auto) 0.5 x10^3/uL (0.0-1.1) Eosinophils # (Auto) 0.1 x10^3/uL (0.0-0.7) Basophils # (Auto) 0.0 x10^3/uL (0.0-0.2) Sodium Level 139 mmol/L (136-145) Potassium Level 3.7 mmol/L (3.5-5.1) Chloride Level 98 mmol/L (98-107) Carbon Dioxide Level 32 mmol/L (21-32) Anion Gap 9 (6-14) Blood Urea Nitrogen 28 mg/dL (7-20) Creatinine 0.9 mg/dL (0.6-1.0) Estimated GFR (Cockcroft-Gault) 70.5 BUN/Creatinine Ratio 31 (6-20) Glucose Level 82 mg/dL (70-99) Calcium Level 8.7 mg/dL (8.5-10.1) Magnesium Level 2.3 mg/dL (1.8-2.4) Total Bilirubin 0.5 mg/dL (0.2-1.0) Aspartate Amino Transf (AST/SGOT) 172 U/L (15-37) Alanine Aminotransferase (ALT/SGPT) 85 U/L (14-59) Alkaline Phosphatase 60 U/L (46-116) Troponin I High Sensitivity 160 ng/L (4-50) 145 ng/L (4-50) 102 ng/L (4-50) Total Protein 7.1 g/dL (6.4-8.2) Albumin 3.6 g/dL (3.4-5.0) Albumin/Globulin Ratio 1.0 (1.0-1.7) Ethyl Alcohol Level < 10 mg/dL (0-10) Triglycerides Level 84 mg/dL (0-150) Cholesterol Level 150 mg/dL (0-200) LDL Cholesterol, Calculated 83 mg/dL (0-100) VLDL Cholesterol, Calculated 17 mg/dL (0-40) Non-HDL Cholesterol Calculated 100 mg/dL (0-129) HDL Cholesterol 50 mg/dL (40-60) Cholesterol/HDL Ratio 3.0 Test 05/04/21 08:55 SARS-CoV-2 Antigen (Rapid) Negative (NEGATIVE) Assessment/Plan Assessment/Plan Flank pain secondary to pyelonephritis versus UTI, history of chronic pain -Evaluate examined bedside. Patient in a lot of distress -A lot of social issues at home according to her that she needs to discharge today to handle them -Explained to patient the risks of that she would still like to discharge. Will give prescription for 10 days ciprofloxacin -Patient said is not safe for her to return home her home medications are we will refill these for just a couple of days -Continue other home meds Justifications for Admission Other Justification HARPREET SOFIA MD May 04, 2021 13:13
[2021-05-04] MEDS ORDERED: OXYC15TA3 PO (13:20)
[2021-05-04] MEDS ORDERED: CIPR500T2 PO (13:20)
[2021-05-04] MEDS ORDERED: HEPARIN for SUB-Q USE 5,000 UNIT/ML VIAL. SQ SCH (14:00)
--- NOTE | 2021-05-04 14:31 | CARD ---
MR#: [id number] Date of Study: 05/04/2021 Ordering Physician: LISA BUCHANAN, Referring Physician: LISA BUCHANAN, Tech: Arpita Gr, [facility] APPROVED REPORT EXAM: Two-dimensional and M-mode echocardiogram with Doppler and color Doppler. Other Information Quality : AverageHR: 75bpm INDICATION Elevated Troponin 2D DIMENSIONS RVDd2.2 (2.9-3.5cm)Left Atrium(2D)2.3 (1.6-4.0cm) IVSd0.6 (0.7-1.1cm)Aortic Root(2D)2.3 (2.0-3.7cm) LVDd3.5 (3.9-5.9cm)LVOT Diameter1.8 (1.8-2.4cm) PWd0.7 (0.7-1.1cm)LVDs2.0 (2.5-4.0cm) FS (%) 43.2 %SV38.2 ml LVEF(%)75.4 (>50%) Aortic Valve AoV Peak Dov.111.6cm/sAoV VTI26.4cm AO Peak GR.5.0mmHgLVOT VTI 22.00cm AO Mean GR.3mmHg Mitral Valve MV E [place]13.6cm/sMV E Peak Gr.4mmHg MV DECEL [id number] A Mlksfnyo76.7cm/s MV E Mean Gr.2mmHgE/A Ratio1.9 TDI Lateral E' P. V20.21cm/sMedial E' P. V42.01cm/s E/Lateral E'3.4E/Medial E'1.7 Tricuspid Valve TR P. [id number]/sRAP [id number] TR Peak Gr.01kzAnJUBE60whRr Pulmonary Vein S1 Nrdhntpx42.6cm/sS2 Xctivmxp64.66cm/s D2 Trtinfll85.7cm/sPVa [id number] LEFT VENTRICLE The left ventricle is normal size. There is normal left ventricular wall thickness. The left ventricu lar systolic function is normal and the ejection fraction is within normal range. The Ejection Fracti on is 50-55%. There is normal LV segmental wall motion. The left ventricular diastolic function and f illing is normal for age. RIGHT VENTRICLE The right ventricle is normal size. There is normal right ventricular wall thickness. The right ventr icular systolic function is normal. ATRIA The left atrium size is normal. The right atrium size is normal. The interatrial septum is intact wit h no evidence for an atrial septal defect or patent foramen ovale as noted on 2-D or Doppler imaging. AORTIC VALVE The aortic valve is normal in structure and function. Doppler and Color Flow revealed no significant aortic regurgitation. There is no significant aortic valvular stenosis. Calculated aortic valve area is 2.64 cm2 with maximum pressure gradient of 7 mmHg and mean pressure gradient of 4 mmHg. MITRAL VALVE The mitral valve is normal in structure and function. There is no evidence of mitral valve prolapse. There is no mitral valve stenosis. Doppler and Color-flow revealed trace mitral regurgitation. TRICUSPID VALVE The tricuspid valve is normal in structure and function. Doppler and Color Flow revealed trace tricus pid regurgitation with an estimated PAP of 40 mmHg. There is no tricuspid valve stenosis. PULMONIC VALVE The pulmonic valve is not well visualized. Doppler and Color Flow revealed trace pulmonic valvular re gurgitation. There is no pulmonic valvular stenosis. GREAT VESSELS The aortic root is normal in size. IVC Doppler evaluation reveals normal flow patterns. PERICARDIAL EFFUSION There is no evidence of significant pericardial effusion. Critical Notification Critical Value: No <Conclusion> The left ventricular systolic function is normal and the ejection fraction is within normal range. Th e Ejection Fraction is 50-55%. There is normal LV segmental wall motion. Signed by : Fernando Archuleta, Electronically Approved : 05/04/2021 14:31:28
--- NOTE | 2021-05-04 15:42 | NUR ---
PATIENT DISCHARGED HOME WITH SIGNIFICANT OTHER. MEDS AND FOLLOW UP REVIEWED. IV REMOVED INTACT. PATIENT STABLE UPON DC.
[2021-05-04] MEDS ORDERED: LACTOBACILLUS RHAMNOSUS GG 1 CAPSULE. PO SCH (21:00)
[2021-05-04] MEDS ORDERED: SENNOSIDES/DOCUSATE 8.6/50MG TABLET. PO SCH (21:00)
== END 2021-05-04 15:00 | disposition home or self-care (01) ==
LOC: ER 18:27 → INTOOBSV 23:28 → ED HOLD 23:28 → 5 SOUTH 23:37
PROVIDERS: ADMIT Internal Medicine; ATTEND Internal Medicine
DX: N10 Acute pyelonephritis (principal); Z20.822 Contact with and (suspected) exposure to COVID-19; R53.1 Weakness; N20.0 Calculus of kidney; R77.8 Other specified abnormalities of plasma proteins; I95.9 Hypotension, unspecified; R10.9 Unspecified abdominal pain; G89.29 Other chronic pain; N39.0 Urinary tract infection, site not specified; F17.210 Nicotine dependence, cigarettes, uncomplicated; Z87.442 Personal history of urinary calculi; Z79.899 Other long term (current) drug therapy; Z98.890 Other specified postprocedural states; Z23 Encounter for immunization; Z71.85 Encounter for immunization safety counseling
CPT/HCPCS: 36415; 70450; 71045; 72125; 74176; 80053; 80061; 80307; 81001; 81025; 83735; 84484; 85025; 87077; 87086; 87186; 87426; 90471; 90686; 93005; 93306; 96361; 96374; 96375; 96376; 99285; G0378; G0480; J0696; J0744; J3010; J7030; U0003; U0005; 96365; G0379

== ENCOUNTER 2021-07-21 14:18 | Emergency (ER) | payer MEDICAID ==
[~2021-07-21] VITALS: Ht 162.6 cm; Wt 40.0 kg
[~2021-07-21 14:18] MED LIST changes: +CIPR500T2 PO; +CITA20TA6 PO; +CLON1TAB PO; +OXYC15TA3 PO; +OXYC20TA PO
[2021-07-21] MEDS ORDERED: IV NORMAL SALINE 1000ML BAG 1,000 ML IV ONE (14:45)
[2021-07-21] MEDS ORDERED: CONTRAST GIVEN. MC PRN (15:00)
[2021-07-21] MEDS ORDERED: IOHEXOL 350 MG/ML 100 ML VIAL. IV ONE (15:00)
[2021-07-21 15:01] LABS: BASO % 0 % (0-3); EOS # 0.2 x10^3/uL (0.0-0.7); EOS % 3 % (0-3); HEMATOCRIT 33.2 % (36.0-47.0); HEMOGLOBIN 11.2 g/dL (12.0-15.5); LYMPH % 18 % (24-48); MEAN CORPUSCULAR HEMOGLOBIN 29 pg (25-35); MEAN CORPUSCULAR HGB CONC 34 g/dL (31-37); MEAN CORPUSCULAR VOLUME 85 fL (79-100); MONO # 0.4 x10^3/uL (0.0-1.1); MONO % 6 % (0-9); NEUT # 4.1 x10^3/uL (1.8-7.7); NEUT % 72 % (31-73); PLATELET COUNT 178 x10^3/uL (140-400); RED CELL DISTRIBUTION WIDTH 12.8 % (11.5-14.5); WHITE BLOOD COUNT 5.7 x10^3/uL (4.0-11.0)
[2021-07-21 15:10] LABS: BILIRUBIN,URINE NEGATIVE (NEG); CLARITY,URINE CLEAR; COLOR,URINE AMBER; NITRITE,URINE POSITIVE (NEG); PH,URINE 5.5 (<5.0-8.0); PROTEIN,URINE NEGATIVE (NEG-TRACE); UROBILINOGEN,URINE 0.2 mg/dL (0.2 mg/dL)
[2021-07-21 15:12] LABS: PROTHROMBIN TIME PATIENT 13.7 SEC (11.7-14.0)
[2021-07-21 15:17] LABS: BARBITURATES NEG (NEG); BENZODIAZEPINES POS (NEG); CANNABINOIDS NEG (NEG); COCAINE NEG (NEG); METHADONE NEG (NEG); OPIATES POS (NEG); PHENCYCLIDINE NEG (NEG)
[2021-07-21 15:25] LABS: AMPHETAMINE/METHAMPHETAMINE NEG (NEG)
[2021-07-21 15:26] LABS: BACTERIA,URINE MANY /HPF (0-FEW)
[2021-07-21 15:26] LABS: CALCIUM 8.7 mg/dL (8.5-10.1); CREATININE 0.8 mg/dL (0.6-1.0); GFR 80.7; POTASSIUM 3.5 mmol/L (3.5-5.1)
[2021-07-21 15:31] LABS: ALBUMIN 3.4 g/dL (3.4-5.0); TOTAL BILIRUBIN 0.4 mg/dL (0.2-1.0); TOTAL PROTEIN 6.7 g/dL (6.4-8.2)
[2021-07-21 15:36] LABS: U PREG PATIENT NEGATIVE (NEG)
[2021-07-21] MEDS ORDERED: cefTRIAXone IV Push 1 GM VIAL. IVP ONE (15:45)
--- NOTE | 2021-07-21 16:10 | RAD ---
CT HEAD AND C-SPINE WO Date: 07/21/2021 2:59 PM Clinical Indication: syncope, pain, fall Comparison: None. Technique: 5 mm axial tomographic images were obtained of the head without contrast. These were view ed on brain and bone windows. CT imaging of the cervical spine was performed without contrast. Coron al and sagittal reformatted images were performed. One or more of the following dose reduction techni ques were utilized: Automated exposure control (AEC), Adjustment of mA and/or kV according to patient size, Use of iterative reconstruction technique such as ASiR, CT scan done according to ALARA and im age gently/image wisely HEAD FINDINGS: The brain parenchyma is normal in attenuation. No intra- or extra-axial mass or fluid collection. No acute hemorrhage. The ventricles are normal in size, shape, and morphology. The mitchell-white matter rell ction is normal. The basilar cisterns are patent. Mild paranasal sinus mucosal thickening. The visualized portions of the orbits and globes are normal . The mastoid air cells are clear. No aggressive osseous lesion or fracture. CERVICAL SPINE FINDINGS: Reversal of the cervical lordosis. Postsurgical changes of ACDF at C6-C7 with interbody spacer No acu te fracture. No aggressive lytic or blastic osseous lesion. Mild multilevel degenerative disc height loss. No high-grade spinal canal stenosis or neural foramina l narrowing. The thyroid gland is normal. No cervical lymphadenopathy. The visualized aerodigestive tract is unrem arkable. The visualized lung apices are clear. IMPRESSION: 1. No acute intracranial process. 2. No acute osseous abnormality of the cervical spine. Electronically signed by: Jim Zhang MD (07/21/2021 4:07 PM) [id number]
--- NOTE | 2021-07-21 16:12 | PHYS DOC ---
Past Medical History Past Medical History: Other Additional Past Medical Histor: scoliosis,CHRONIC PAIN Past Surgical History: Other Additional Past Surgical Histo: multiple back surgeries Smoking Status: Current Every Day Smoker Additional Information: 0.5 PPD Alcohol Use: Occasionally General Adult EDM: Chief Complaint: MULTIPLE COMPLAINTS HPI: HPI: Patient is a 36 year old [f__sex] who presents with [] Review of Systems: Review of Systems: Constitutional: Denies fever or chills. [] Eyes: Denies change in visual acuity. [] HENT: Denies nasal congestion or sore throat. [] Respiratory: Denies cough or shortness of breath. [] Cardiovascular: Denies chest pain or edema. [] GI: Denies abdominal pain, nausea, vomiting, bloody stools or diarrhea. [] : Denies dysuria. [] Musculoskeletal: Denies back pain or joint pain. [] Integument: Denies rash. [] Neurologic: Denies headache, focal weakness or sensory changes. [] Endocrine: Denies polyuria or polydipsia. [] Lymphatic: Denies swollen glands. [] Psychiatric: Denies depression or anxiety. [] Heart Score: Risk Factors: Risk Factors: DM, Current or recent (<one month) smoker, HTN, HLP, family history of CAD, obesity. Risk Scores: Score 0 - 3: 2.5% MACE over next 6 weeks - Discharge Home Score 4 - 6: 20.3% MACE over next 6 weeks - Admit for Clinical Observation Score 7 - 10: 72.7% MACE over next 6 weeks - Early Invasive Strategies Current Medications: Current Medications Medications (Trade) Dose Ordered Sig/Charleen Start Time Stop Time Status Last Admin Dose Admin Ceftriaxone Sodium (Rocephin) 1 gm 1X ONCE 07/21/21 15:45 07/21/21 15:46 DC Info (CONTRAST GIVEN -- Rx MONITORING) 1 each PRN DAILY PRN 07/21/21 15:00 07/23/21 14:59 Iohexol (Omnipaque 350 Mg/ml) 75 ml 1X ONCE 07/21/21 15:00 07/21/21 15:01 DC 07/21/21 15:00 75 ML Sodium Chloride 1,000 ml @ 1,000 mls/hr 1X ONCE 07/21/21 14:45 07/21/21 15:44 DC 07/21/21 14:55 1,000 MLS/HR Allergies: Allergies: Allergies Coded Allergies Type Severity Reaction Last Updated Verified Penicillins Allergy Intermediate 06/30/20 Yes gabapentin Allergy Intermediate 04/02/21 Yes morphine Allergy Intermediate 04/02/21 Yes Physical Exam: PE: Constitutional: Well developed, well nourished, no acute distress, non-toxic appearance. [] HENT: Normocephalic, atraumatic, bilateral external ears normal, oropharynx [address], no oral exudates, nose normal. [] Eyes: PERRLA, EOMI, conjunctiva normal, no discharge. [] Neck: Normal range of motion, no tenderness, supple, no stridor. [] Cardiovascular:Heart rate regular rhythm, no murmur [] Lungs & Thorax: Bilateral breath sounds clear to auscultation [] Abdomen: Bowel sounds normal, soft, no tenderness, no masses, no pulsatile masses. [] Skin: Warm, dry, no erythema, no rash. [] Back: No tenderness, no CVA tenderness. [] Extremities: No tenderness, no cyanosis, no clubbing, ROM intact, no edema. [] Neurologic: Alert and oriented X 3, normal motor function, normal sensory function, no focal deficits noted. [] Psychologic: Affect normal, judgement normal, mood normal. [] Current Patient Data: Labs: Laboratory Tests Test 07/21/21 14:48 07/21/21 15:05 White Blood Count 5.7 x10^3/uL (4.0-11.0) Red Blood Count 3.90 x10^6/uL (3.50-5.40) Hemoglobin 11.2 g/dL (12.0-15.5) L Hematocrit 33.2 % (36.0-47.0) L Mean Corpuscular Volume 85 fL (79-100) Mean Corpuscular Hemoglobin 29 pg (25-35) Mean Corpuscular Hemoglobin Concent 34 g/dL (31-37) Red Cell Distribution Width 12.8 % (11.5-14.5) Platelet Count 178 x10^3/uL (140-400) Neutrophils (%) (Auto) 72 % (31-73) Lymphocytes (%) (Auto) 18 % (24-48) L Monocytes (%) (Auto) 6 % (0-9) Eosinophils (%) (Auto) 3 % (0-3) Basophils (%) (Auto) 0 % (0-3) Neutrophils # (Auto) 4.1 x10^3/uL (1.8-7.7) Lymphocytes # (Auto) 1.0 x10^3/uL (1.0-4.8) Monocytes # (Auto) 0.4 x10^3/uL (0.0-1.1) Eosinophils # (Auto) 0.2 x10^3/uL (0.0-0.7) Basophils # (Auto) 0.0 x10^3/uL (0.0-0.2) Prothrombin Time 13.7 SEC (11.7-14.0) Prothrombin Time INR 1.1 (0.8-1.1) Activated Partial Thromboplast Time 28 SEC (24-38) Sodium Level 143 mmol/L (136-145) Potassium Level 3.5 mmol/L (3.5-5.1) Chloride Level 106 mmol/L (98-107) Carbon Dioxide Level 32 mmol/L (21-32) Anion Gap 5 (6-14) L Blood Urea Nitrogen 18 mg/dL (7-20) Creatinine 0.8 mg/dL (0.6-1.0) Estimated GFR (Cockcroft-Gault) 80.7 BUN/Creatinine Ratio 23 (6-20) H Glucose Level 100 mg/dL (70-99) H Calcium Level 8.7 mg/dL (8.5-10.1) Magnesium Level 2.0 mg/dL (1.8-2.4) Total Bilirubin 0.4 mg/dL (0.2-1.0) Aspartate Amino Transferase (AST) 44 U/L (15-37) H Alanine Aminotransferase (ALT) 38 U/L (14-59) Alkaline Phosphatase 50 U/L (46-116) Ammonia 19 mcmol/L (11-34) Troponin I High Sensitivity 7 ng/L (4-50) WC-Dcn-Q-Type Natriuretic Peptide 297 pg/mL (0-124) H Total Protein 6.7 g/dL (6.4-8.2) Albumin 3.4 g/dL (3.4-5.0) Albumin/Globulin Ratio 1.0 (1.0-1.7) Lipase 20 U/L (73-393) L Ethyl Alcohol Level < 10 mg/dL (0-10) Urine Collection Type U cath Urine Color Anna Marie Urine Clarity Clear Urine pH 5.5 (<5.0-8.0) Urine Specific [place] >=1.030 (1.000-1.030) Urine Protein Negative mg/dL (NEG-TRACE) Urine Glucose (UA) Negative mg/dL (NEG) Urine Ketones (Stick) Negative mg/dL (NEG) Urine Blood Trace (NEG) Urine Nitrite Positive (NEG) Urine Bilirubin Negative (NEG) Urine Urobilinogen Dipstick 0.2 mg/dL (0.2 mg/dL) Urine Leukocyte Esterase Negative (NEG) Urine RBC 3-5 /HPF (0-2) Urine WBC 1-4 /HPF (0-4) Urine Squamous Epithelial Cells Mod /LPF Urine Bacteria Many /HPF (0-FEW) Urine Mucus Mod /LPF Urine Test Negative (NEG) Urine Opiates Screen Pos (NEG) Urine Methadone Screen Neg (NEG) Urine Barbiturates Neg (NEG) Urine Phencyclidine Screen Neg (NEG) Urine Amphetamine/Methamphetamine Neg (NEG) Urine Benzodiazepines Screen Pos (NEG) Urine Cocaine Screen Neg (NEG) Urine Cannabinoids Screen Neg (NEG) Urine Ethyl Alcohol Neg (NEG) Laboratory Tests 07/21/21 14:48 Laboratory Tests 07/21/21 14:48 Vital Signs: Vital Signs Date Time Temp Pulse Resp B/P (MAP) Pulse Ox O2 Delivery O2 Flow Rate FiO2 07/21/21 14:18 98.0 81 18 99/57 (71) 90 Room Air 2.0 98.0 EKG: EKG: @1430 NSR at 78bpm, NO ST elevation, QRS 76ms, QT/QTc 412/474ms, @1518 NSR at 70bpm, NO ST elevation, QRS 76ms, QT/QTc 424/461ms Radiology/Procedures: Radiology/Procedures: [] Course & Med Decision Making: Course & Med Decision Making Pertinent Labs and Imaging studies reviewed. (See chart for details) [] Dragon Disclaimer: Dragon Disclaimer: This electronic medical record was generated, in whole or in part, using a voice recognition dictation system. Departure Departure Impression: Primary Impression: Acute pyelonephritis Disposition: HOME / SELF CARE / HOMELESS Condition: STABLE Referrals: EMERY RAMIREZ (PCP) Patient Instructions: Pyelonephritis, Adult, [id number] Scripts Cephalexin (CEPHALEXIN) 500 Mg Tablet 1 TAB PO TID for 7 Days, #21 TAB Prov: LEODAN FREEMAN DO 07/21/21 LEODAN FREEMAN DO Jul 21, 2021 16:12
--- NOTE | 2021-07-21 16:17 | RAD ---
EXAMINATION: CTA CHEST CLINICAL HISTORY: Syncope, chest pain, eval for PE Technique: Spiral CT acquisition of the chest from the thoracic inlet to the upper abdomen following IV contrast with coronal and sagittal reformatted images also provided for review. 3D maximum intensi ty projection images also performed. Artificial intelligence software analysis also performed mark John. CT Dose Reduction Employed: One or more of the following individualized dose reduction techniques wer e utilized for this examination: 1. Automated exposure control 2. Adjustment of the mA and/or kV ac cording to patient size 3. Use of iterative reconstruction technique. COMPARISON: Chest radiograph 05/03/2021 FINDINGS: Pulmonary Vasculature: No evidence of main, lobar, or segmental pulmonary arterial thrombus. Lung Parenchyma, Pleura, and Airways: No focal consolidation. No suspicious pulmonary nodule. No pleu ral effusion. Central airways patent. Lower Neck, Lymph Nodes, and Mediastinum: Visualized thyroid gland within normal limits. No mediastin al, hilar, or axillary lymphadenopathy. Heart, Pericardium, and Thoracic Vessels: Cardiac chambers normal in size. No pericardial effusion. T horacic aorta within normal limits. No coronary artery atherosclerotic calcifications are noted, alth ough the study is not optimized for coronary assessment. Bones and Soft Tissues: Dextroconvex curvature in the thoracolumbar spine with stabilization hardware . Upper Abdomen: Partially visualized upper abdomen unremarkable. IMPRESSION: No evidence of main, lobar, or segmental pulmonary embolism. Electronically signed by: Arnaud Avila DO (07/21/2021 4:15 PM) [id number]
[2021-07-21] MEDS ORDERED: CEPH500T PO (17:58)
[2021-07-21 18:20] VITALS: BP 96/59
--- NOTE | 2021-07-22 05:49 | EKG ---
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
--- NOTE | 2021-07-22 05:50 | EKG ---
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
== END 2021-07-21 18:20 | disposition home or self-care (01) ==
LOC: ER 14:18
DX: N10 Acute pyelonephritis (principal); G89.29 Other chronic pain; M54.2 Cervicalgia; R51.9 Headache, unspecified; F17.200 Nicotine dependence, unspecified, uncomplicated; Z88.0 Allergy status to penicillin; Z88.5 Allergy status to narcotic agent; Z88.8 Allergy status to other drugs, medicaments and biological substances
CPT/HCPCS: 36415; 70450; 71275; 72125; 80053; 80307; 81001; 81025; 82140; 83605; 83690; 83735; 83880; 84484; 85025; 85610; 85730; 87086; 93005; 96361; 96374; 99285; G0480; J0696; J7030; Q9967; 87077; 87186

== ENCOUNTER 2021-08-21 19:19 | Emergency (ER) | payer MEDICAID ==
[~2021-08-21] VITALS: Ht 149.9 cm; Wt 43.2 kg
[~2021-08-21 19:19] MED LIST changes: +CEPH500T PO
[2021-08-21] MEDS ORDERED: IV NORMAL SALINE 1000ML BAG 1,000 ML IV SCH (19:45)
[2021-08-21] MEDS ORDERED: fentaNYL PF VIAL 100 MCG/2 ML VIAL IVP ONE (19:45)
[2021-08-21] MEDS ORDERED: ASPIRIN CHEWABLE 81 MG TABLET. PO ONE (19:45)
--- NOTE | 2021-08-21 19:50 | PHYS DOC ---
Past Medical History Past Medical History: Other Additional Past Medical Histor: scoliosis,CHRONIC PAIN, COARCTATION OF PLUMONARY ARTERY Past Surgical History: Other Additional Past Surgical Histo: multiple back surgeries, ALICIA IN BACK, PLATE IN NECK Smoking Status: Current Every Day Smoker Alcohol Use: Occasionally General Adult EDM: Chief Complaint: CHEST PAIN HPI: HPI: Patient is a 36-year-old female who presents to the emergency department for left-sided chest pain with shortness of breath. Patient rates her pain 10 out of 10. She describes it as a tightness and a sharp pain. The pain occasionally radiates to her left arm but is not currently. No radiation of pain. No treatment for pain. Patient reports that she was seen in this emergency department for the same symptoms 1 month ago and at that time she did have an elevated troponin but she left AGAINST MEDICAL ADVICE. She reports that since then her chest pain has never gone away. Patient denies any vomiting, cough, fever, drug use. Patient has a history of coarctation of the pulmonary artery. She reports that she is on narcotics for "physical disabilities". She is a current smoker. Review of Systems: Review of Systems: Constitutional: See HPI Respiratory: See HPI] Cardiovascular: See HPI GI: See HPI Heart Score: C/O Chest Pain: Yes HEART Score for Chest Pain: HEART Score for Chest Pain Response (Comments) Value History Slighlty/Non-Suspicious 0 ECG Normal 0 Age < 45 0 Risk Factors 1 or 2 Risk Factors 1 Troponin < Normal Limit 0 Total 1 Risk Factors: Risk Factors: DM, Current or recent (<one month) smoker, HTN, HLP, family history of CAD, obesity. Risk Scores: Score 0 - 3: 2.5% MACE over next 6 weeks - Discharge Home Score 4 - 6: 20.3% MACE over next 6 weeks - Admit for Clinical Observation Score 7 - 10: 72.7% MACE over next 6 weeks - Early Invasive Strategies Allergies: Allergies: Allergies Coded Allergies Type Severity Reaction Last Updated Verified Penicillins Allergy Intermediate 06/30/20 Yes gabapentin Allergy Intermediate 04/02/21 Yes morphine Allergy Intermediate 04/02/21 Yes Physical Exam: PE: Constitutional: Well developed, well nourished, no acute distress, non-toxic appearance. [] HENT: Normocephalic, atraumatic, bilateral external ears normal, oropharynx moist, no oral exudates, nose normal. [] Eyes: PERRL, EOMI, conjunctiva normal, no discharge. [] Neck: Normal range of motion, no stridor Cardiovascular:Heart rate regular rhythm, no murmur, left-sided chest wall tenderness with palpation [] Lungs & Thorax: Bilateral breath sounds clear to auscultation [] Abdomen: Bowel sounds normal, soft, no tenderness, no masses, no pulsatile masses. [] Skin: Warm, dry, no erythema, no rash. [] Back: Normal range of motion Extremities: No tenderness, no cyanosis, no clubbing, ROM intact, no edema. [] Neurologic: Alert and oriented X 3, normal motor function, normal sensory fun ction, no focal deficits noted. [] Psychologic: Affect normal, judgement normal, mood normal. [] Current Patient Data: Labs: Laboratory Tests Test 08/21/21 20:50 08/21/21 21:30 08/21/21 22:39 White Blood Count 4.3 x10^3/uL Red Blood Count 4.12 x10^6/uL Hemoglobin 12.4 g/dL Hematocrit 35.6 % Mean Corpuscular Volume 86 fL Mean Corpuscular Hemoglobin 30 pg Mean Corpuscular Hemoglobin Concent 35 g/dL Red Cell Distribution Width 13.7 % Platelet Count 160 x10^3/uL Neutrophils (%) (Auto) 46 % Lymphocytes (%) (Auto) 39 % Monocytes (%) (Auto) 10 % Eosinophils (%) (Auto) 5 % Basophils (%) (Auto) 0 % Neutrophils # (Auto) 2.0 x10^3/uL Lymphocytes # (Auto) 1.7 x10^3/uL Monocytes # (Auto) 0.4 x10^3/uL Eosinophils # (Auto) 0.2 x10^3/uL Basophils # (Auto) 0.0 x10^3/uL D-Dimer (Radha) 0.54 ug/mlFEU Sodium Level 138 mmol/L Potassium Level 4.1 mmol/L Chloride Level 101 mmol/L Carbon Dioxide Level 34 mmol/L Anion Gap 3 Blood Urea Nitrogen 21 mg/dL Creatinine 0.7 mg/dL Estimated GFR (Cockcroft-Gault) 94.2 BUN/Creatinine Ratio 30 Glucose Level 108 mg/dL Calcium Level 9.4 mg/dL Total Bilirubin 0.1 mg/dL Aspartate Amino Transf (AST/SGOT) 91 U/L Alanine Aminotransferase (ALT/SGPT) 125 U/L Alkaline Phosphatase 100 U/L Troponin I High Sensitivity < 4 ng/L < 4 ng/L Total Protein 6.8 g/dL Albumin 3.6 g/dL Albumin/Globulin Ratio 1.1 Bedside Urine HCG, Qualitative Hcg negative Current Medications Medications (Trade) Dose Ordered Sig/Charleen Route PRN Reason Start Time Stop Time Status Last Admin Dose Admin Aspirin (Aspirin Chewable) 324 mg 1X ONCE PO 08/21/21 19:45 08/21/21 19:49 DC 08/21/21 21:37 Sodium Chloride 1,000 ml @ 1,000 mls/hr Q1H IV 08/21/21 19:45 08/21/21 20:44 DC 08/21/21 21:30 Fentanyl Citrate (Fentanyl 2ml Vial) 50 mcg 1X ONCE IVP 08/21/21 19:45 08/21/21 19:49 DC 08/21/21 21:30 Iohexol (Omnipaque 350 Mg/ml) 100 ml 1X ONCE IV 08/21/21 23:00 08/21/21 23:01 DC 08/21/21 23:01 Info (CONTRAST GIVEN -- Rx MONITORING) 1 each PRN DAILY PRN MC SEE COMMENTS 08/21/21 22:30 08/23/21 22:29 Vital Signs: Vital Signs Date Time Temp Pulse Resp B/P (MAP) Pulse Ox O2 Delivery O2 Flow Rate FiO2 08/21/21 19:23 97.4 102 22 109/63 (78) 99 Room Air 97.4 EKG: EKG: EKG performed by ER staff at 1927 shows sinus rhythm with a rate of 97, QTc 446, no STEMI read by Dr. Pinon at 0 [] Radiology/Procedures: Radiology/Procedures: []REASON: soa, cp, elevated ddimer, OMNI 350 90 ML IV PROCEDURE: CT ANGIOGRAPHY CHEST CTA CHEST History: Short of air, chest pain, elevated d-dimer, rule out PE. Comparison: CTA chest 07/21/2021 Technique: CTA of the pulmonary arteries with intravenous contrast. 3-D postprocessing was performed. Findings: Pulmonary arteries: No pulmonary embolism. Aorta and great vessels: No aneurysm or dissection of the aortic arch or thoracic aorta. Thyroid: No significant abnormalities. Mediastinum and marlyn: No mediastinal masses or adenopathy is seen. Esophagus: Distal esophageal wall thickening, similar to comparison. Heart: The heart is normal in size. There is no pericardial effusion. Airways, Lungs, Pleura: No airspace consolidation, pleural effusion or pneumothorax. Upper abdomen: Limited evaluation of the upper abdomen is unremarkable. Osseous structures and soft tissues: Redemonstrated thoracic scoliosis status post posterior fixation with parents and bars. Impression: 1. No pulmonary embolism. No acute findings in the chest. ------ Exposure: One or more of the following individualized dose reduction techniques were utilized for this examination: 1. Automated exposure control 2. Adjustment of the mA and/or kV according to patient size 3. Use of iterative reconstruction technique. Electronically signed by: Kahlil Brown MD (08/21/2021 11:13 PM) [facility] DICTATED and SIGNED BY: KAHLIL BROWN MD DATE: 08/21/212304 PROCEDURE: PORTABLE CHEST 1V Exam Date: 08/21/2021 7:54 PM XR CHEST 1V Indication: Reason: soa, cp / Spl. Instructions: / History: . Comparison: May 03, 2021 FINDINGS/ IMPRESSION: Postoperative changes and scoliosis of the spine noted, limiting evaluation. The cardiac silhouette and pulmonary vasculature are within normal limits. There is no focal consolidation, pleural effusion or pneumothorax. Electronically signed by: Berhane Keller MD (08/21/2021 7:56 PM) [facility] DICTATED and SIGNED BY: BERHANE KELLER MD DATE: 08/21/211954 Course & Med Decision Making: Course & Med Decision Making Pertinent Labs and Imaging studies reviewed. (See chart for details) [] Patient presents to the emergency department for left-sided chest pain that is reproducible with palpation and shortness of breath that has been going on for the last month. Patient was seen in this emergency department 1 month ago and had an elevated troponin. Work-up in the emergency department consisted of blood work including troponin and D-dimer, EKG, chest x-ray. Patient treated with IV fluids, aspirin and pain medication. CBC, creatinine and troponin were unremarkable. Heart score 1. Patient's AST and ALT are mildly elevated. Patient's D-dimer was elevated at 0.54. Chest x- ray showed no acute findings. CT angio was ordered of her chest to rule out pulmonary embolism and this was negative. Upon reevaluation, patient is sleeping in the emergency department room. She was awoken she reports that her chest pain has resolved. Discussed with supervising physician. Patient is advised to take Tylenol and ibuprofen for pain and follow-up with inspector scales. I discussed with patient all findings and diagnostic testing as well as the need to follow-up with PCP for further evaluation and treatment or return to the ER if any new or worsening symptoms. Strict return precautions were also discussed at length. Patient voiced understanding and agreement with the plan. Patient is hemodynamically stable at the time of disposition. Dragon Disclaimer: Dragon Disclaimer: This electronic medical record was generated, in whole or in part, using a voice recognition dictation system. Departure Departure Impression: Primary Impression: Chest pain Qualified Codes: R07.89 - Other chest pain Disposition: HOME / SELF CARE / HOMELESS Condition: GOOD Referrals: EMERY RAMIREZ (PCP) DANAE MCLEAN MD Patient Instructions: Chest Pain (Nonspecific), Chest Wall Pain, [id number] Additional Instructions: You are seen in the emergency department today for chest pain. At this time, does not appear that you are experiencing acute coronary syndrome. It is possible that your chest pain is musculoskeletal in nature, you can take Tylenol and ibuprofen for pain at home. Please follow-up with your primary care provider tomorrow. I would also advise you to follow-up with a inspector scales and was attached to your discharge paperwork. You reported that your chest pain had resolved. If you return home and you start to have chest pain again or experience shortness of breath, intractable nausea or vomiting, high fevers ref ractory to treatment, dizziness, syncope or any new or worsening concerns please return to the emergency department for reevaluation. Your liver enzymes are mildly elevated in the emergency department, please follow-up with your primary care provider regarding this finding so they can continue to monitor these lab levels. NIESHA OBREGON SCIENTIFIC RESEARCH ASSOCIATE Aug 21, 2021 19:50
--- NOTE | 2021-08-21 19:59 | RAD ---
Exam Date: 08/21/2021 7:54 PM XR CHEST 1V Indication: Reason: soa, cp / Spl. Instructions: / History: . Comparison: May 03, 2021 FINDINGS/ IMPRESSION: Postoperative changes and scoliosis of the spine noted, limiting evaluation. The cardiac silhouette and pulmonary vasculature are within normal limits. There is no focal consolidation, pleural effusion or pneumothorax. Electronically signed by: Alcides Keller MD (08/21/2021 7:56 PM) GAEL
[2021-08-21 21:10] LABS: BASO % 0 % (0-3); EOS # 0.2 x10^3/uL (0.0-0.7); EOS % 5 % (0-3); HEMATOCRIT 35.6 % (36.0-47.0); HEMOGLOBIN 12.4 g/dL (12.0-15.5); LYMPH # 1.7 x10^3/uL (1.0-4.8); LYMPH % 39 % (24-48); MEAN CORPUSCULAR HEMOGLOBIN 30 pg (25-35); MEAN CORPUSCULAR HGB CONC 35 g/dL (31-37); MEAN CORPUSCULAR VOLUME 86 fL (79-100); MONO # 0.4 x10^3/uL (0.0-1.1); MONO % 10 % (0-9); NEUT % 46 % (31-73); PLATELET COUNT 160 x10^3/uL (140-400); RED BLOOD COUNT 4.12 x10^6/uL (3.50-5.40); RED CELL DISTRIBUTION WIDTH 13.7 % (11.5-14.5); WHITE BLOOD COUNT 4.3 x10^3/uL (4.0-11.0)
[2021-08-21 21:16] LABS: CALCIUM 9.4 mg/dL (8.5-10.1); CREATININE 0.7 mg/dL (0.6-1.0); GFR 94.2; POTASSIUM 4.1 mmol/L (3.5-5.1)
[2021-08-21 21:22] LABS: ALBUMIN 3.6 g/dL (3.4-5.0); ALBUMIN/GLOBULIN RATIO 1.1 (1.0-1.7); TOTAL BILIRUBIN 0.1 mg/dL (0.2-1.0); TOTAL PROTEIN 6.8 g/dL (6.4-8.2)
[2021-08-21] MEDS ORDERED: CONTRAST GIVEN. MC PRN (22:30)
--- NOTE | 2021-08-21 22:39 | EKG ---
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
[2021-08-21] MEDS ORDERED: IOHEXOL 350 MG/ML 100 ML VIAL. IV ONE (23:00)
--- NOTE | 2021-08-21 23:15 | RAD ---
CTA CHEST History: Short of air, chest pain, elevated d-dimer, rule out PE. Comparison: CTA chest 07/21/2021 Technique: CTA of the pulmonary arteries with intravenous contrast. 3-D postprocessing was performed. Findings: Pulmonary arteries: No pulmonary embolism. Aorta and great vessels: No aneurysm or dissection of the aortic arch or thoracic aorta. Thyroid: No significant abnormalities. Mediastinum and marlyn: No mediastinal masses or adenopathy is seen. Esophagus: Distal esophageal wall thickening, similar to comparison. Heart: The heart is normal in size. There is no pericardial effusion. Airways, Lungs, Pleura: No airspace consolidation, pleural effusion or pneumothorax. Upper abdomen: Limited evaluation of the upper abdomen is unremarkable. Osseous structures and soft tissues: Redemonstrated thoracic scoliosis status post posterior fixation with parents and bars. Impression: 1. No pulmonary embolism. No acute findings in the chest. ------ Exposure: One or more of the following individualized dose reduction techniques were utilized for thi s examination: 1. Automated exposure control 2. Adjustment of the mA and/or kV according to patient size 3. Use of iterative reconstruction technique. Electronically signed by: Kahlil Garg MD (08/21/2021 11:13 PM) [facility]
[2021-08-21 23:24] VITALS: BP 91/52
== END 2021-08-21 23:48 | disposition home or self-care (01) ==
LOC: ER 19:19
DX: R07.89 Other chest pain (principal); R06.02 Shortness of breath; G89.29 Other chronic pain; F17.200 Nicotine dependence, unspecified, uncomplicated; Z88.0 Allergy status to penicillin; Z88.5 Allergy status to narcotic agent; Z88.8 Allergy status to other drugs, medicaments and biological substances
CPT/HCPCS: 36415; 71045; 71275; 80053; 81025; 84484; 85025; 85379; 93005; 96361; 96374; 99285; J3010; J7030; Q9967

== ENCOUNTER 2021-09-03 11:11 | Emergency (ER) | payer MEDICAID ==
[~2021-09-03] VITALS: Ht 149.9 cm; Wt 46.4 kg
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
--- NOTE | 2021-09-03 12:50 | RAD ---
Right ankle 3 views. HISTORY: Right ankle pain 3 views were taken of the right ankle. There is not evidence of a fracture. There is no bony destruct jagdeep or erosive process. There is no acute osseous abnormality. IMPRESSION: 1. Negative right ankle. Electronically signed by: Alfredo Finch MD (09/03/2021 12:47 PM) [id number]
[2021-09-03 13:03] LABS: BARBITURATES NEG (NEG); BENZODIAZEPINES POS (NEG); CANNABINOIDS NEG (NEG); COCAINE NEG (NEG); METHADONE NEG (NEG); OPIATES POS (NEG); PHENCYCLIDINE NEG (NEG)
[2021-09-03 13:04] LABS: AMPHETAMINE/METHAMPHETAMINE NEG (NEG)
[2021-09-03 13:13] LABS: RBC,URINE 0 /HPF (0-2)
[2021-09-03 13:14] LABS: BACTERIA,URINE FEW /HPF (0-FEW); YEAST,URINE PRESENT /HPF
[2021-09-03 13:22] LABS: BASO % 0 % (0-3); EOS # 0.2 x10^3/uL (0.0-0.7); EOS % 5 % (0-3); HEMATOCRIT 38.7 % (36.0-47.0); HEMOGLOBIN 13.1 g/dL (12.0-15.5); LYMPH # 1.6 x10^3/uL (1.0-4.8); LYMPH % 39 % (24-48); MEAN CORPUSCULAR HEMOGLOBIN 29 pg (25-35); MEAN CORPUSCULAR HGB CONC 34 g/dL (31-37); MEAN CORPUSCULAR VOLUME 86 fL (79-100); MONO # 0.4 x10^3/uL (0.0-1.1); MONO % 9 % (0-9); NEUT # 1.9 x10^3/uL (1.8-7.7); NEUT % 46 % (31-73); PLATELET COUNT 206 x10^3/uL (140-400); RED CELL DISTRIBUTION WIDTH 13.6 % (11.5-14.5)
[2021-09-03 13:32] LABS: CALCIUM 9.3 mg/dL (8.5-10.1); CREATININE 0.7 mg/dL (0.6-1.0); GFR 94.2; POTASSIUM 4.4 mmol/L (3.5-5.1)
--- NOTE | 2021-09-03 13:36 | RAD ---
CT HEAD WITHOUT CONTRAST 09/03/2021 1:29 PM Indication: Seizure, Fall. Head trauma. Comparison: CT of the head July 21, 2021 Procedure: Multidetector CT imaging of the head was performed without the administration of contrast. Findings: There is no evidence of acute intracranial hemorrhage. There is no evidence of acute territ orial infarction. Please note that CT is limited for evaluation of acute ischemia. No mass effect or midline shift is identified . The ventricles and basilar cisterns have an appropriate appearance. No abnormal extra-axial fluid collections are seen. No acute osseous changes are identified. Impression: No evidence of acute intracranial abnormality CT DOSING PQRS STATEMENT: One or more of the following individualized dose reduction techniques were utilized for this examinat ion: 1. Automated exposure control 2. Adjustment of the mA and/or kV according to patient size 3. Use of iterative reconstruction technique Electronically signed by: Jamal Duque MD (09/03/2021 1:34 PM) [id number]
[2021-09-03 13:38] LABS: ALBUMIN 3.6 g/dL (3.4-5.0); TOTAL BILIRUBIN 0.4 mg/dL (0.2-1.0); TOTAL PROTEIN 7.3 g/dL (6.4-8.2)
[2021-09-03] MEDS ORDERED: KETOROLAC 30 MG/ML VIAL. IVP ONE (14:00)
[2021-09-03 15:11] VITALS: BP 119/69
== END 2021-09-03 14:15 | disposition home or self-care (01) ==
LOC: ER 11:11
DX: S93.401A Sprain of unspecified ligament of right ankle, initial encounter (principal); S00.93XA Contusion of unspecified part of head, initial encounter; R56.9 Unspecified convulsions; R51.9 Headache, unspecified; F17.200 Nicotine dependence, unspecified, uncomplicated; Z88.0 Allergy status to penicillin; Z88.5 Allergy status to narcotic agent; Z88.8 Allergy status to other drugs, medicaments and biological substances; W18.39XA Other fall on same level, initial encounter; Y93.89 Activity, other specified; Y92.89 Other specified places as the place of occurrence of the external cause; Y99.8 Other external cause status
CPT/HCPCS: 36415; 70450; 73610; 80053; 80307; 81001; 81025; 82962; 85025; 87086; 96374; 99285; J1885